=== PATIENT | male | born 1975 | race Caucasian/White ===

== ENCOUNTER 2022-09-21 17:54 | Emergency (ER) | payer OTHER ==
--- NOTE | 2022-09-21 18:03 | ED Fall/Injury ---
General Chief Complaint: Trauma-Non Activation Stated Complaint: RT HIP PAIN History of Present Illness Date Seen by Provider: September 21, 2022 Time Seen by Provider: 18:03 Initial Comments 47-year-old male with no significant PMH, is brought in by EMS after being [place]ed from [place] horse [place] the [place], resulting in the patient being thrown to the ground landing on his hands and knees as per patient. Patient states that he had a severe pain in his right side pelvis and a bulging swelling in his lower right pelvic and groin area after the fall. Patient stated that he was able to stand up and then lost consciousness for a few seconds as per witnesses. Denies head strike, nausea and vomiting, chest pain or abdominal pain, flank pain, shortness of breath. Patient is able to ambulate. Allergies and Home Medications Allergies Coded Allergies: No Known Drug Allergies (Unverified , 09/21/22) Patient Home Medication List Home Medication List Reviewed: Yes Review of Systems Review of Systems Constitutional: see HPI Eyes: No Symptoms Reported Ears, Nose, Mouth, Throat: no symptoms reported Respiratory: no symptoms reported Cardiovascular: no symptoms reported Gastrointestinal: no symptoms reported Genitourinary: see HPI, other (Swelling in groin region) Musculoskeletal: see HPI, back pain, muscle pain Skin: no symptoms reported Psychiatric/Neurological: See HPI Physical Exam Vital Signs Vital Signs - First Documented 09/21/22 17:56 Temp 36.2 Pulse 80 Resp 16 B/P (MAP) 129/80 (96) Pulse Ox 97 O2 Delivery Room Air Capillary Refill : Height, Weight, BMI Height: '" Weight: lbs. oz. kg; BMI Method: General Appearance: WD/WN, no apparent distress HEENT: PERRL/EOMI, normal ENT inspection Neck: non-tender (Patient is in cervical collar) Cardiovascular: normal peripheral pulses, regular rate, rhythm Respiratory: chest non-tender, lungs clear, normal breath sounds Gastrointestinal: normal bowel sounds, non tender, soft Pelvic: mass (Soft swelling in the lower right pelvic region and right groin area which is not reducible. ), other (Tenderness in the gluteal region and pubic symphysis. Pt unable to ambulate due to pain) Back: normal inspection, no vertebral tenderness (No specific vertebral tenderness or step-offs) Extremities: normal range of motion, non-tender, normal inspection, no pedal edema Neurologic/Psychiatric: social science manager II-XII nml as tested, no motor/sensory deficits, alert, normal mood/affect, oriented x 3 Skin: normal color Progress/Results/Core Measures Results/Orders Lab Results Laboratory Tests Test 09/21/22 18:31 Range/Units White Blood Count 10.8 4.3-11.0 10^3/uL Red Blood Count 4.21 L 4.30-5.52 10^6/uL Hemoglobin 13.8 13.3-17.7 g/dL Hematocrit 40 40-54 % Mean Corpuscular Volume 95 80-99 fL Mean Corpuscular Hemoglobin 33 25-34 pg Mean Corpuscular Hemoglobin Concent 35 32-36 g/dL Red Cell Distribution Width 11.9 10.0-14.5 % Platelet Count 280 130-400 10^3/uL Mean Platelet Volume 8.8 L 9.0-12.2 fL Immature Granulocyte % (Auto) 0 % Neutrophils (%) (Auto) 74 42-75 % Lymphocytes (%) (Auto) 19 12-44 % Monocytes (%) (Auto) 5 0-12 % Eosinophils (%) (Auto) 2 0-10 % Basophils (%) (Auto) 1 0-10 % Neutrophils # (Auto) 8.0 H 1.8-7.8 10^3/uL Lymphocytes # (Auto) 2.0 1.0-4.0 10^3/uL Monocytes # (Auto) 0.5 0.0-1.0 10^3/uL Eosinophils # (Auto) 0.2 0.0-0.3 10^3/uL Basophils # (Auto) 0.1 0.0-0.1 10^3/uL Immature Granulocyte # (Auto) 0.0 0.0-0.1 10^3/uL Sodium Level 141 135-145 MMOL/L Potassium Level 3.9 3.6-5.0 MMOL/L Chloride Level 108 H 98-107 MMOL/L Carbon Dioxide Level 24 21-32 MMOL/L Anion Gap 9 5-14 MMOL/L Blood Urea Nitrogen 14 7-18 MG/DL Creatinine 1.33 H 0.60-1.30 MG/DL Estimat Glomerular Filtration Rate 66 BUN/Creatinine Ratio 11 Glucose Level 140 H 70-105 MG/DL Calcium Level 8.7 8.5-10.1 MG/DL Corrected Calcium 8.9 8.5-10.1 MG/DL Total Bilirubin 0.3 0.1-1.0 MG/DL Aspartate Amino Transf (AST/SGOT) 15 5-34 U/L Alanine Aminotransferase (ALT/SGPT) 14 0-55 U/L Alkaline Phosphatase 63 40-136 U/L Total Protein 6.1 L 6.4-8.2 GM/DL Albumin 3.7 3.2-4.5 GM/DL Serum Alcohol < 10 <10 MG/DL My Orders Orders - OTTO VILLELA MD Ct Head/Cervical Spine Wo (09/21/22 18:10) Ct Abdomen/Pelvis W (09/21/22 18:10) Alcohol (09/21/22 18:11) Cbc With Automated Diff (09/21/22 18:11) Comprehensive Metabolic Panel (09/21/22 18:11) Drug Screen Stat (Urine) (09/21/22 18:11) Ua Culture If Indicated (09/21/22 18:11) Iohexol Injection (Omnipaque 350 Mg/Ml 1 (09/21/22 18:30) Received Contrast (Hold Metformin- Contr (09/21/22 18:30) Ns (Ivpb) (Sodium Chloride 0.9% Ivpb Bag (09/21/22 18:30) Medications Given in ED Current Medications Medications Dose Ordered Sig/Shayna Route Start Time Stop Time Status Last Admin Dose Admin Iohexol 100 ml ONCE ONCE IV 09/21/22 18:30 09/21/22 18:31 DC 09/21/22 18:50 80 ML Sodium Chloride 100 ml ONCE ONCE IV 09/21/22 18:30 09/21/22 18:31 DC 09/21/22 18:50 80 ML Vital Signs/I&O 09/21/22 17:56 Temp 36.2 Pulse 80 Resp 16 B/P (MAP) 129/80 (96) Pulse Ox 97 O2 Delivery Room Air Progress Progress Note : Progress Note 1. FALL FROM HORSE: - CT HEAD & C-SPINE:no acute findings - C-collar removed after reviewing CT c-spine results - CT ABD & PELVIS: There is subtle widening of the right SI joint. There is also widening of the pubic symphysis. There is hematoma developing along the right internal obturator and in the presacral soft tissues. Hematoma is also seen along the base of the penis and in the superficial soft tissues overlying the right lower quadrant. There may be active hemorrhage involving the base of the penis and extending into the right corpus cavernosum. - CBC/ CMP: Hemoglobin is stable at 13.8, Creatinine is 1.33, other labs unremarkable - s. ETOH is negative - UA/ UDS: RBC is 3+ in ua. negative UDS - Bladder scan : > 600 - Pelvic binder placed - Fentanyl 50mcg iv STAT - NS IVF : 1 bag given from EMS which was completed in ER - Called [facility] first approximately at 19:46 and spoke with Urologist, Dr Avila, who recommended transfer to [place] since it is complicated. Called [facility] around 20:10 and discussed with Urology BLUEPRINT ASSEMBLER: Ebonie Beckford., who discus sed with her attending and recommended transfer to . - Called at approximately 20:[address] Khoury to trauma in the ER. Pt will go by [facility] since we do not have any ambulances available for transport as they are already transporting other patients. Diagnostic Imaging Diagonstic Imaging: CT Plain Films/CT/US/NM/MRI: abdomen, c-spine, pelvis, head Comments [facility] [place], [place] NAME: HEIDI ESTRADA [facility] REC#: [id number] PT STATUS: REG ER : 1975 PHYSICIAN: OTTO VILLELA MD ADMIT DATE: 09/21/22/ER FS Signed Date of Exam:09/21/22 CT ABDOMEN/PELVIS W EXAMINATION: CT abdomen and pelvis with intravenous contrast. TECHNIQUE: Multiple contiguous axial images were obtained through the abdomen and pelvis after the uneventful administration of intravenous contrast. All CT scans use one or more of the following dose optimizing techniques: automated exposure control, MA and/or KvP adjustment based on patient size and exam type or iterative reconstruction. HISTORY: Thrown from a horse. Abdominal pain. Groin pain. COMPARISON: None available. FINDINGS: The heart is unremarkable. The included lung bases are clear. The liver, spleen, pancreas, adrenal glands and kidneys have a normal appearance. There is no pathologically enlarged mesenteric or retroperitoneal adenopathy. The bowel loops are nondilated. The appendix is visualized in the right lower quadrant and has a normal appearance. There is no free fluid or free air. Ureters and bladder are grossly normal. There is normal excretion of contrast on delayed images. There is subtle widening of the right SI joint. There is also widening of the pubic symphysis. There is hematoma developing along the right internal obturator and in the presacral soft tissues. Hematoma is also seen along the base of the penis and in the superficial soft tissues overlying the right lower quadrant. There may be active hemorrhage involving the base of the penis and extending into the right corpus cavernosum. IMPRESSION: 1. Widening of the right SI joint and pubic symphysis with associated pelvic hematomas. There may be active hemorrhage involving the base of the penis and within the right corpus cavernosum. Recommend correlation with physical exam and patient's symptoms and urologic consultation to further evaluate. 2. No evidence of acute injury to the solid organs of the abdomen or pelvis. No evidence of bladder rupture. Dictated by: Dictated on workstation # [id number] Dict: 09/21/221909 Trans: 09/21/221920 [facility] [phone] Interpreted by: ARETHA VENTURA DO Electronically signed by: ARETHA VENTURA DO 09/21/221920 [facility] [place] NAME: HEIDI ESTRADA [facility] REC#: [id number] PT STATUS: REG ER : 1975 PHYSICIAN: OTTO VILLELA MD ADMIT DATE: 09/21/22/ER FS Signed Date of Exam:09/21/22 CT HEAD/CERVICAL SPINE WO PROCEDURE: CT head and CT cervical spine without contrast. TECHNIQUE: Multiple contiguous axial images were obtained through the brain and cervical spine without the use of intravenous contrast. Sagittal and coronal reformations through the cervical spine were then performed. Auto Exposure Controls were utilized during the CT exam to meet ALARA standards for radiation dose reduction. INDICATION: Head and neck pain. Thrown from a horse. COMPARISON: None. FINDINGS: CT HEAD: No large acute territorial ischemia, mass or hemorrhage. No midline shift or mass effect. The ventricles, cortical sulci and basilar cisterns are patent and unremarkable. The calvarium is intact. Mucosal thickening is seen in the paranasal sinuses. The mastoid air cells are clear. CT CERVICAL SPINE: No acute fracture or dislocation is seen in the cervical spine. No focal osseous lesion. Vertebral body heights are well-maintained. The craniocervical junction is well-maintained. Mild degenerative changes are seen in the cervical spine with disc osteophyte complexes and uncovertebral arthropathy. Soft tissues of the neck are unremarkable. IMPRESSION: 1. No hemorrhage or focal intra-axial mass. No CT evidence of large acute territorial ischemia. 2. No acute fracture or dislocation in the cervical spine. 3. Mucosal thickening in the paranasal sinuses. Dictated by: Dictated on workstation # [id number] Dict: 09/21/221905 Trans: 09/21/221920 [facility] [phone] Interpreted by: ARETHA VENTURA DO Electronically signed by: ARETHA VENTURA DO 09/21/221920 Departure Impression Primary Impression: Hemorrhage of corpus cavernosum or penis Additional Impressions: Traumatic diastasis of symphysis pubis Closed traumatic dislocation of sacroiliac joint Hematoma of penis Pelvic hematoma Disposition: 02 XFER SHT-TRM HOSP Condition: Stable Transfer Transfer Reason: Exceeds level of care Time Spoke to Accepting Phy: 20:25 Transfer Progress Notes Excepted to [facility] by Dr. Lynn, trauma Transfer Facility: Method of Transfer: Air Departure-Patient Inst. Referrals: NO,LOCAL PHYSICIAN (PCP/Family) Primary Care Physician OTTO VILLELA MD September 21, 2022 18:03
[2022-09-21] MEDS ORDERED: NS 100 ML (IVPB) BAG IV ONE (18:30)
[2022-09-21] MEDS ORDERED: HOLD METFORMIN - RECEIVED CONTRAST 20 ML VIAL IV SCH (18:30)
[2022-09-21] MEDS ORDERED: IOHEXOL 350 MG/ML 100 ML (OMNIPAQUE 350) VIAL IV ONE (18:30)
[2022-09-21 18:35] LABS: BASOPHILS # (AUTO) 0.1 10^3/uL (0.0-0.1); BASOPHILS % (AUTO) 1 % (0-10); EOSINOPHILS # (AUTO) 0.2 10^3/uL (0.0-0.3); EOSINOPHILS % (AUTO) 2 % (0-10); HEMATOCRIT 40 % (40-54); HEMOGLOBIN 13.8 g/dL (13.3-17.7); LYMPHOCYTES % (AUTO) 19 % (12-44); MEAN CORPUSCULAR HEMOGLOBIN 33 pg (25-34); MEAN CORPUSCULAR HGB CONC 35 g/dL (32-36); MEAN CORPUSCULAR VOLUME 95 fL (80-99); MEAN PLATELET VOLUME 8.8 fL (9.0-12.2); MONOCYTES # (AUTO) 0.5 10^3/uL (0.0-1.0); MONOCYTES % (AUTO) 5 % (0-12); NEUTROPHILS % (AUTO) 74 % (42-75); PLATELET COUNT 280 10^3/uL (130-400); WHITE BLOOD COUNT 10.8 10^3/uL (4.3-11.0)
[2022-09-21 18:56] LABS: ALANINE AMINOTRANSFERASE 14 U/L (0-55); ALBUMIN 3.7 GM/DL (3.2-4.5); ALKALINE PHOSPHATASE 63 U/L (40-136); BILIRUBIN,TOTAL 0.3 MG/DL (0.1-1.0); BUN/CREATININE RATIO 11; CALCIUM 8.7 MG/DL (8.5-10.1); CARBON DIOXIDE 24 MMOL/L (21-32); CHLORIDE 108 MMOL/L (98-107); CREATININE SERUM 1.33 MG/DL (0.60-1.30); GFR ESTIMATED 66; GLUCOSE 140 MG/DL (70-105); POTASSIUM 3.9 MMOL/L (3.6-5.0); SODIUM 141 MMOL/L (135-145); TOTAL PROTEIN 6.1 GM/DL (6.4-8.2)
--- NOTE | 2022-09-21 19:10 | Diagnostic Imaging Report ---
PROCEDURE: CT head and CT cervical spine without contrast. TECHNIQUE: Multiple contiguous axial images were obtained through the brain and cervical spine without the use of intravenous contrast. Sagittal and coronal reformations through the cervical spine were then performed. Auto Exposure Controls were utilized during the CT exam to meet ALARA standards for radiation dose reduction. INDICATION: Head and neck pain. Thrown from a horse. COMPARISON: None. FINDINGS: CT HEAD: No large acute territorial ischemia, mass or hemorrhage. No midline shift or mass effect. The ventricles, cortical sulci and basilar cisterns are patent and unremarkable. The calvarium is intact. Mucosal thickening is seen in the paranasal sinuses. The mastoid air cells are clear. CT CERVICAL SPINE: No acute fracture or dislocation is seen in the cervical spine. No focal osseous lesion. Vertebral body heights are well-maintained. The craniocervical junction is well-maintained. Mild degenerative changes are seen in the cervical spine with disc osteophyte complexes and uncovertebral arthropathy. Soft tissues of the neck are unremarkable. IMPRESSION: 1. No hemorrhage or focal intra-axial mass. No CT evidence of large acute territorial ischemia. 2. No acute fracture or dislocation in the cervical spine. 3. Mucosal thickening in the paranasal sinuses. Dictated by: Dictated on workstation # [id number]
--- NOTE | 2022-09-21 19:21 | Diagnostic Imaging Report ---
EXAMINATION: CT abdomen and pelvis with intravenous contrast. TECHNIQUE: Multiple contiguous axial images were obtained through the abdomen and pelvis after the uneventful administration of intravenous contrast. All CT scans use one or more of the following dose optimizing techniques: automated exposure control, MA and/or KvP adjustment based on patient size and exam type or iterative reconstruction. HISTORY: Thrown from a horse. Abdominal pain. Groin pain. COMPARISON: None available. FINDINGS: The heart is unremarkable. The included lung bases are clear. The liver, spleen, pancreas, adrenal glands and kidneys have a normal appearance. There is no pathologically enlarged mesenteric or retroperitoneal adenopathy. The bowel loops are nondilated. The appendix is visualized in the right lower quadrant and has a normal appearance. There is no free fluid or free air. Ureters and bladder are grossly normal. There is normal excretion of contrast on delayed images. There is subtle widening of the right SI joint. There is also widening of the pubic symphysis. There is hematoma developing along the right internal obturator and in the presacral soft tissues. Hematoma is also seen along the base of the penis and in the superficial soft tissues overlying the right lower quadrant. There may be active hemorrhage involving the base of the penis and extending into the right corpus cavernosum. IMPRESSION: 1. Widening of the right SI joint and pubic symphysis with associated pelvic hematomas. There may be active hemorrhage involving the base of the penis and within the right corpus cavernosum. Recommend correlation with physical exam and patient's symptoms and urologic consultation to further evaluate. 2. No evidence of acute injury to the solid organs of the abdomen or pelvis. No evidence of bladder rupture. Dictated by: Dictated on workstation # [id number]
[2022-09-21] MEDS ORDERED: fentaNYL INJ 100 MCG/2 ML AMP IVP ONE (20:00)
[2022-09-21 20:33] LABS: BILIRUBIN,URINE NEGATIVE (NEGATIVE); CLARITY,URINE CLEAR; COLOR,URINE YELLOW; GLUCOSE, URINE (UA) NEGATIVE (NEGATIVE); KETONES,URINE NEGATIVE (NEGATIVE); LEUKOCYTE ESTERASE ,URINE NEGATIVE (NEGATIVE); NITRITE,URINE NEGATIVE (NEGATIVE); PH,URINE 7.5 (5-9); PROTEIN,URINE NEGATIVE (NEGATIVE)
[2022-09-21 20:38] LABS: BACTERIA,URINE TRACE /HPF; HYALINE CASTS, URINE 0-2 /LPF; RBC,URINE >100 /HPF
[2022-09-21 20:39] LABS: URINE OTHER SPERM PRESENT /HPF
[2022-09-21 20:45] LABS: AMPHETAMINE SCREEN, URINE NEGATIVE (NEGATIVE); BARBITURATE SCREEN URINE NEGATIVE (NEGATIVE); BENZODIAZEPINES SCREEN URINE NEGATIVE (NEGATIVE); CANNABINOID SCREEN, URINE NEGATIVE (NEGATIVE); COCAINE SCREEN URINE NEGATIVE (NEGATIVE); METHADONE STAT NEGATIVE (NEGATIVE); OPIATE SCREEN URINE NEGATIVE (NEGATIVE); OXYCODONE STAT NEGATIVE (NEGATIVE); PROPOXYPHENE STAT NEGATIVE (NEGATIVE); TRICYCLIC ANTIDEPRESSANTS SCRE NEGATIVE (NEGATIVE)
[2022-09-21 21:33] VITALS: BP 113/69
== END 2022-09-21 21:41 | disposition short-term general hospital (02) ==
LOC: ER FS 17:59
DX: S33.4XXA Traumatic rupture of symphysis pubis, initial encounter (principal); S33.2XXA Dislocation of sacroiliac and sacrococcygeal joint, initial encounter; S30.21XA Contusion of penis, initial encounter; N48.89 Other specified disorders of penis; Z28.310 Unvaccinated for COVID-19; V80.010A Animal-rider injured by fall from or being thrown from horse in noncollision accident, initial encounter; Y93.52 Activity, horseback riding; Y92.39 Other specified sports and athletic area as the place of occurrence of the external cause
CPT/HCPCS: 36415; 70450; 72125; 74177; 80053; 80306; 81000; 85025; 99285; G0480; 80320; Q9967